=== PATIENT | female | born 1980 | race African-American/Black ===

== ENCOUNTER 2022-01-30 22:59 | Emergency (ER) | payer OTHER ==
[~2022-01-30] VITALS: Ht 162.6 cm; Wt 114.0 kg
[2022-01-30 23:38] VITALS: BP 149/92
--- NOTE | 2022-01-30 23:48 | NUR ---
PT SENT TO LOBBY.
[2022-01-31] MEDS ORDERED: ONDANSETRON 4 MG ODT PO ONE
--- NOTE | 2022-01-31 00:29 | NUR ---
PT AMBUALTED TO BED #12
[2022-01-31] MEDS ORDERED: ONDA8TAB87 PO (00:48)
[2022-01-31 00:52] VITALS: BP 149/92
--- NOTE | 2022-01-31 00:52 | NUR ---
PATIENT CLEARED FOR DISHCARGE AT THIS TIME. ADVISED TO FOLLOW UP WITH PCP AND RETURN IF CONDITION WORSENS. NO OTHER COMPLAINTS OR CONCERNS AT THIS TIME FOLLOWING DISHCARGE TECHAING.
== END 2022-01-31 00:52 | disposition home or self-care (01) ==
LOC: MED 22:59
DX: R11.2 Nausea with vomiting, unspecified (principal); R10.13 Epigastric pain; E11.9 Type 2 diabetes mellitus without complications; I10 Essential (primary) hypertension; Z90.49 Acquired absence of other specified parts of digestive tract; Z98.890 Other specified postprocedural states; Z88.8 Allergy status to other drugs, medicaments and biological substances
CPT/HCPCS: 81002; 81025; 99283; Q0162